=== PATIENT | female | born 1950 | race African-American/Black ===

== ENCOUNTER 2017-02-03 18:43 | Emergency (ER) | payer MEDICARE ==
[~2017-02-03 18:43] MED LIST: ASPI-630 PO; HYDR12.58 PO; INSU100C4 SQ; INSU100I13 SQ; LINA5TAB4 PO; LOSA50TA6 PO
[2017-02-03 19:00] VITALS: BP 164/93
[2017-02-03] MEDS ORDERED: AMOX1TAB11 PO (19:10)
--- NOTE | 2017-02-03 19:10 | PHYS DOC ---
Past Medical History Past Medical History: Diabetes-Type II, Fibromyalgia, Hypertension Past Surgical History: , Hip Replacement Additional Past Surgical Histo: KNEE REPLACEMENT Alcohol Use: None Drug Use: None Adult General Chief Complaint Chief Complaint: MUSCLE SPASM/CRAMP [facility] HPI Patient is a 66 year old female presents to the emergency department with complaints of a puncture wound to the right hand as well as chronic muscle cramping. Patient states that yesterday she was using a knife to separate sausage when she accidentally poked the palmar aspect of the right hand. She states dates slightly swollen and red. He denies loss range of motion. She states that she has had chronic muscle cramps and they seem to have worsened since she's been on a Slim for life diet. She states she has not been drinking as much water as she should. She states that her doctor on Saturday advise her to take tonic water for her muscle cramps. Review of Systems Review of Systems Constitutional: Denies fever or chills [] Eyes: Denies change in visual acuity, redness, or eye pain [] HENT: Denies nasal congestion or sore throat [] Respiratory: Denies cough or shortness of breath [] Cardiovascular: No additional information not addressed in HPI [] GI: Denies abdominal pain, nausea, vomiting, bloody stools or diarrhea [] : Denies dysuria or hematuria [] Musculoskeletal: Denies back pain or joint pain, muscle cramps [] Integument: Right hand, puncture wound Neurologic: Denies headache, focal weakness or sensory changes [] Endocrine: Denies polyuria or polydipsia [] Current Medications Current Medications Current Medications Medications (Trade) Dose Ordered Sig/Gabino Start Time Stop Time Status Last Admin Dose Admin Diphtheria/ Tetanus/Acell Pertussis (Boostrix) 0.5 ml ONCE ONCE 02/03/17 19:15 02/03/17 19:16 UNV Allergies Allergies Allergies Coded Allergies Type Severity Reaction Last Updated Verified insulin detemir Allergy Intermediate 06/16/15 Yes morphine Allergy Intermediate Itching 06/16/15 Yes Physical Exam Physical Exam Constitutional: Well developed, well nourished, no acute distress, non-toxic appearance. [] HENT: Normocephalic, atraumatic, bilateral external ears normal, oropharynx moist, no oral exudates, nose normal. [] Eyes: PERRLA, EOMI, conjunctiva normal, no discharge. [] Neck: Normal range of motion, no tenderness, supple, no stridor. [] Cardiovascular:Heart rate regular rhythm, no murmur [] Lungs & Thorax: Bilateral breath sounds clear to auscultation [] Abdomen: Bowel sounds normal, soft, no tenderness, no masses, no pulsatile masses. [] Skin: Right hand, palmar aspect beneath the MCP of the ring finger, small puncture wound, 1 cm area of surrounding erythema without induration. There is no discharge from the wound. Full range of motion all digits without difficulty. Neurovascular intact distal. Back: No tenderness, no CVA tenderness. [] Extremities: No tenderness, no cyanosis, no clubbing, ROM intact, no edema. [] Neurologic: Alert and oriented X 3, normal motor function, normal sensory function, no focal deficits noted. [] Psychologic: Affect normal, judgement normal, mood normal. [] EKG EKG [] Radiology/Procedures Radiology/Procedures [] Course & Med Decision Making Course & Med Decision Making Pertinent Labs and Imaging studies reviewed. (See chart for details) [] Dragon Disclaimer Dragon Disclaimer This electronic medical record was generated, in whole or in part, using a voice recognition dictation system. Departure Departure Impression: Primary Impression: Puncture wound Additional Impressions: Cellulitis Cramps, muscle, general Disposition: 01 HOME, SELF-CARE Condition: STABLE Referrals: LIONEL REID (PCP) Patient Instructions: Cellulitis, Muscle Cramps, Puncture Wound Additional Instructions: Follow-up with your primary care provider in 2-3 day for further evaluation of your puncture wound on the hand and your chronic muscle cramps. Increase water intake. Scripts Amoxicillin/Potassium Clav (AMOX TR-K CLV 875-125 MG TAB) 1 Each Tablet 1 TAB PO BID, #20 TAB Prov: DRISS GARCIA APRN 02/03/17 Problem Qualifiers Additional Impressions: Cellulitis Site of cellulitis: other site Qualified Codes: L03.818 - Cellulitis of other sites DRISS GARCIA APRN Feb 03, 2017 19:10
[2017-02-03] MEDS ORDERED: DIPHTH,PERTUSS(ACELL),TET TOX 0.5 ML DISP.SYRIN. VAX IM ONE (19:30)
== END 2017-02-03 19:19 | disposition home or self-care (01) ==
LOC: ER 18:43
DX: S61.431A Puncture wound without foreign body of right hand, initial encounter (principal); L03.818 Cellulitis of other sites; R25.2 Cramp and spasm; M79.7 Fibromyalgia; I10 Essential (primary) hypertension; E11.9 Type 2 diabetes mellitus without complications; W26.0XXA Contact with knife, initial encounter; Y93.89 Activity, other specified; Y99.8 Other external cause status; Y92.89 Other specified places as the place of occurrence of the external cause
CPT/HCPCS: 90471; 90715; 99283-25

== ENCOUNTER 2017-06-04 09:50 | Emergency (ER) | payer MEDICARE ==
[2017-06-04 11:35] LABS: INFLUENZA A PATIENT NEGATIVE (NEGATIVE); INFLUENZA B PATIENT NEGATIVE (NEGATIVE); OBC FLU VALID
== END 2017-06-04 11:57 | disposition home or self-care (01) ==
LOC: ER 09:50
DX: J20.9 Acute bronchitis, unspecified (principal); E11.9 Type 2 diabetes mellitus without complications; M79.7 Fibromyalgia; I10 Essential (primary) hypertension; Z88.5 Allergy status to narcotic agent; Z88.8 Allergy status to other drugs, medicaments and biological substances
CPT/HCPCS: 71046; 87804; 87804-59; 99285-25

== ENCOUNTER 2018-12-17 13:02 | Emergency (ER) | payer MEDICARE, OTHER ==
[~2018-12-17] VITALS: Ht 162.6 cm; Wt 122.9 kg
[~2018-12-17 13:02] MED LIST changes: +AMOX1TAB11 PO; +AZIT250T6 PO; +GUAI600T47 PO; +LINA5TAB PO; -LINA5TAB4 PO; +LOSA-73 PO; -LOSA50TA6 PO
[2018-12-17 13:10] VITALS: BP 197/92
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
[2018-12-17] MEDS ORDERED: HYDR-3164 PO (15:04)
[2018-12-17] MEDS ORDERED: ORPH100T PO (15:04)
--- NOTE | 2018-12-17 16:16 | EKG ---
[facility] [address] [place] [address] Test Date: 2018-12-17 Test Time: 14:13:53 Pat Name: ROBERT MARI Department: Room: Gender: Jig Bore Operator: : 1950 Requested By: AMANDA SHIPMAN Order Number: [id number] Reading MD: Derek Varma MD Measurements Intervals [place] Rate: P: UT: QRS: QRSD: T: QT: QTc: Interpretive Statements SR RBBB Electronically Signed On 12-19-2018 15:41:46 CDT by Derek Varma MD
== END 2018-12-17 15:30 | disposition home or self-care (01) ==
LOC: ER 13:02
DX: S39.012A Strain of muscle, fascia and tendon of lower back, initial encounter (principal); S20.212A Contusion of left front wall of thorax, initial encounter; M54.2 Cervicalgia; E11.9 Type 2 diabetes mellitus without complications; I10 Essential (primary) hypertension; Z96.659 Presence of unspecified artificial knee joint; Z96.649 Presence of unspecified artificial hip joint; Z88.5 Allergy status to narcotic agent; Z88.8 Allergy status to other drugs, medicaments and biological substances; V46.4XXA Person boarding or alighting a car injured in collision with other nonmotor vehicle, initial encounter; Y93.89 Activity, other specified; Y92.412 Parkway as the place of occurrence of the external cause; Y99.8 Other external cause status
CPT/HCPCS: 71046; 72100; 93005; 99284